=== PATIENT | female | born 1935 | race Caucasian/White ===

== ENCOUNTER 2017-11-10 11:48 | Inpatient (IN) | payer OTHER ==
--- NOTE | 2017-11-10 13:10 | EDPHY ---
H & P Stated Complaint: Syncope Time Seen by Provider: 11/10/17 12:53 HPI/ROS: CHIEF COMPLAINT: Presyncopal episodes HISTORY OF PRESENT ILLNESS: This is an 82-year-old female who is new to [place], having arrived here from [place] on October 28 of this year. She presents today because recurrent presyncopal episodes that have apparently been going on for months. She is accompanied by her daughter who is concerned about these episodes. Patient is having spells where she becomes pale and her lips turned blue and she appears to be fading out; as if she might faint. When she is placed supine the symptoms resolve and she recovers. She has not actually fainted because she is always laid flat when this occurs. She is unable to provide any premonitory symptoms. She these episodes began at the beginning of the year. Of note, she was started on amlodipine, a 2nd antihypertensive, earlier this year. She has not had chest pain. She has no significant cardiac history other than hypertension. She was seen by [facility] a mobile medical unit last night and referred to the emergency department at that time. CBC and chemistries were performed and they were essentially normal--I was able to review them--except for sodium of 131. The examiner noted abdominal distention and recommended an emergency department visit for further evaluation. The patient has a history of urinary retention and years ago was advised to start taking Flomax. She chose not to do so. She denies dysuria, urgency, or frequency. She has not had flank pain. She has a history of COPD but has not been short of breath. She has had no fever or cough. REVIEW OF SYSTEMS: A ten system review of systems was performed and is negative with the exception of the items mentioned in the HPI. Past medical history: 1. COPD 2. Hypertension 3. Urinary retention 4. Hyponatremia Past surgical history: Lumbar surgeries Family history: Social history: She is new to [place], arrived here earlier in the month from [place]. She is staying with her daughter. Former smoker, she quit in February of 2017. General Appearance: Alert. Vital signs reviewed. Eyes: Pupils equal and round, no conjunctival injection, no discharge. Anicteric. ENT, Mouth: Mucous membranes are moist, no oropharyngeal erythema or edema. Neck: No lymphadenopathy, supple. Respiratory: Lungs are clear to auscultation; no wheezes, rales, or rhonchi. Cardiovascular: Regular rate and rhythm; no murmur, rub, or gallop. Gastrointestinal: Abdomen is soft and nontender with , no masses or organomegaly, bowel sounds normal. Skin: Warm and dry, no rashes on exposed skin, normal color. Back: Nontender to palpation over the thoracolumbar spine. No CVAT. Extremities: No lower extremity edema, no calf tenderness or swelling. Neurological: Alert and oriented. Moving all four extremities easily and equally. Psychiatric: Normal affect. - Personal History Current Tetanus/Diphtheria Vaccine: Yes - Medical/Surgical History Hx Asthma: No Hx Chronic Respiratory Disease: Yes Hx Diabetes: No Hx Cardiac Disease: Yes Hx Renal Disease: No Hx Cirrhosis: No Hx Alcoholism: No Other PMH: syncope, osteoporosis, appy, tubal ligation, hypothyoidism, - Social History Smoking Status: Former smoker Constitutional: Initial Vital Signs Temperature (C) 36.7 C 11/10/17 12:18 Heart Rate 80 11/10/17 12:18 Respiratory Rate 18 11/10/17 12:18 Blood Pressure 137/67 H 11/10/17 12:18 O2 Sat (%) 95 11/10/17 12:18 O2 Delivery Mode Room Air Allergies/Adverse Reactions: codeine Allergy (Verified 11/10/17 13:54) Vomiting erythromycin base Allergy (Verified 11/10/17 13:54) Rash Penicillins Allergy (Verified 11/10/17 13:54) Rash Sulfa (Sulfonamide Antibiotics) Allergy (Verified 11/10/17 13:54) Rash Home Medications: Medication Instructions Recorded Albuterol [Proventil Neb] 3 ml IH QID PRN 11/10/17 Aspirin [Aspirin 81mg (*)] 81 mg PO DAILY 11/10/17 Calcium Citrate W/Vit D [Citracal 1 each PO DAILY 11/10/17 + D] Denosumab [Prolia] 60 mg SQ [id number] 11/10/17 Lisinopril [Zestril 5 mg (*)] 5 mg PO DAILY 11/10/17 Umeclidinium Brm/Vilanterol Tr 1 each IH HS 11/10/17 [Anoro Ellipta 62.5-25 Mcg INH] Medical Decision Making ED Course/Re-evaluation: Presyncopal episodes in an 82-year-old female with COPD. EKG is reviewed by in is normal. I have an EKG from 10/28/2017 for comparison and there are no changes. Cardiac workup is being initiated. She has no respiratory symptoms that would suggest PE and her presyncopal episodes have been long-standing, they are not a new problem although her family in [place] is appropriately concerned about them. History of urinary retention. She does have some lower abdominal distension. Will check a postvoid residual with a bladder scan. PVR normal. UA does not show signs of infection. Labs show D-dimer of 0.53. We discussed CTA and a joint decision was made to forego this study at this time. Troponin negative. She is slightly hyponatremic. INitial potassium 5.2, repeat 4.1. She is being admitted to the hospital for further evaluation of her presyncopal episodes--which could be orthostasis (heart rate from 75 to 87 when moving from supine to standing), hypovolemia, blood loss, medication related (amlodipine added to medications within past month or two). - Data Points Laboratory Results: Laboratory Results 11/10/17 13:55 11/11/17 04:16 Medications Given: Discontinued Medications Aspirin (Aspirin) 81 mg PO DAILY [facility] Stop: 05/10/18 08:59 Last Admin: 11/12/17 10:25 Dose: 81 mg Enoxaparin Sodium (Lovenox) 40 mg SC DAILY [facility] Stop: 05/10/18 08:59 Last Admin: 11/12/17 10:25 Dose: Not Given Miscellaneous Medication (Umeclidinium Brm/Vilanterol Tr [Anoro Ellipta 62.5-25 Mcg Inh]) 1 each IH HS [facility] Stop: 05/09/18 21:59 Last Admin: 11/11/17 22:17 Dose: 1 ea Point of Care Test Results: Chemistry 11/10/17 14:32 POC Troponin I 0.01 ng/mL ng/mL (0.00-0.08) Departure - Departure Disposition: [facility] Inpatient Acute Clinical Impression: Pre-syncope Condition: Fair
[2017-11-10 14:26] LABS: PLATELET COUNT 288 10^3/uL (150-400)
[2017-11-10] MEDS ORDERED: ONDANSETRON DISINTEGRATING 4 MG TAB PO PRN (15:06)
[2017-11-10] MEDS ORDERED: ACETAMINOPHEN 325 MG TAB PO PRN (15:06)
[2017-11-10] MEDS ORDERED: ONDANSETRON 4 MG/2 ML VIAL IVP PRN (15:06)
[2017-11-10] MEDS ORDERED: NS 1,000 ML IV SCH (15:15)
--- NOTE | 2017-11-10 15:50 | PDGENHP ---
History and Physical - Chief Complaint Presyncope - History of Present Illness Karen Russell is a 82 yo F with a PMHx of HTN who presents to [facility] for evaluation of presyncope. She reports that she has been having episodes where she will stand up from sitting and experience lightheadedness and the feeling like she is going to pass out. She has been experiencing these symptoms for the past month or so since the new medication Amlodipine was added to her regimen. She has not had any LOC or falls. She denies any chest pain, SOB, vision changes, weakness, edema, n/v, changes in urination. History Information - Allergies/Home Medication List Allergies/Adverse Reactions: codeine Allergy (Verified 11/10/17 13:54) Vomiting erythromycin base Allergy (Verified 11/10/17 13:54) Rash Penicillins Allergy (Verified 11/10/17 13:54) Rash Sulfa (Sulfonamide Antibiotics) Allergy (Verified 11/10/17 13:54) Rash Home Medications: Albuterol [Proventil Neb] 3 ml IH QID PRN 11/10/17 [Last Taken Unknown] Aspirin [Aspirin 81mg (*)] 81 mg PO DAILY 11/10/17 [Last Taken Unknown] Calcium Citrate W/Vit D [Citracal + D (OTC)] 1 each PO DAILY 11/10/17 [Last Taken Unknown] Denosumab [Prolia] 60 mg SQ .[id number] 11/10/17 [Last Taken Unknown] Lisinopril [Zestril 5 mg (*)] 5 mg PO DAILY 11/10/17 [Last Taken 11/10/17] Umeclidinium Brm/Vilanterol Tr [Anoro Ellipta 62.5-25 Mcg INH] 1 each IH HS [Last Taken 11/09/17] amLODIPine BESYLATE [Norvasc 5 mg (*)] 5 mg PO HS 11/10/17 [Last Taken 11/09/17] I have personally reviewed and updated: family history, medical history, social history, surgical history - Past Medical History hypertension, osteoporosis - Surgical History Reports: no pertinent surgical hx - Family History Negative for: sudden - Social History Smoking Status: Former smoker Review of Systems Review of Systems: ROS: 10pt was reviewed & negative except for what was stated in HPI & below Physical Exam Physical Exam: Temp Pulse Resp BP Pulse Ox 36.7 C 75 18 147/76 H 95 11/10/17 12:18 11/10/17 14:05 11/10/17 12:18 11/10/17 14:05 11/10/17 12:18 Constitutional: no apparent distress Eyes: PERRL Ears, Nose, Mouth, Throat: moist mucous membranes Cardiovascular: regular rate and rhythym Respiratory: no respiratory distress, clear to auscultation Gastrointestinal: normoactive bowel sounds, soft, non-tender abdomen Genitourinary: no bladder fullness Skin: warm Musculoskeletal: no muscle tenderness Neurologic: AAOx3 Psychiatric: interacting appropriately Lab Data & Imaging Review 11/10/17 13:55 11/10/17 14:30 WBC 5.85 10^3/uL (3.80-9.50) 11/10/17 13:55 RBC 4.33 10^6/uL (4.18-5.33) 11/10/17 13:55 Hgb 13.0 g/dL (12.6-16.3) 11/10/17 13:55 Hct 38.8 % (38.0-47.0) 11/10/17 13:55 MCV 89.6 fL (81.5-99.8) 11/10/17 13:55 MCH 30.0 pg (27.9-34.1) 11/10/17 13:55 MCHC 33.5 g/dL (32.4-36.7) 11/10/17 13:55 RDW 12.9 % (11.5-15.2) 11/10/17 13:55 Plt Count 288 10^3/uL (150-400) 11/10/17 13:55 MPV 9.2 fL (8.7-11.7) 11/10/17 13:55 Neut % (Auto) 66.5 % (39.3-74.2) 11/10/17 13:55 Lymph % (Auto) 22.6 % (15.0-45.0) 11/10/17 13:55 [place] % (Auto) 8.9 % (4.5-13.0) 11/10/17 13:55 Eos % (Auto) 1.2 % (0.6-7.6) 11/10/17 13:55 Baso % (Auto) 0.5 % (0.3-1.7) 11/10/17 13:55 Nucleat RBC Rel Count 0.0 % (0.0-0.2) 11/10/17 13:55 Absolute Neuts (auto) 3.89 10^3/uL (1.70-6.50) 11/10/17 13:55 Absolute Lymphs (auto) 1.32 10^3/uL (1.00-3.00) 11/10/17 13:55 Absolute Monos (auto) 0.52 10^3/uL (0.30-0.80) 11/10/17 13:55 Absolute Eos (auto) 0.07 10^3/uL (0.03-0.40) 11/10/17 13:55 Absolute Basos (auto) 0.03 10^3/uL (0.02-0.10) 11/10/17 13:55 Absolute Nucleated RBC 0.00 10^3/uL (0-0.01) 11/10/17 13:55 Immature Gran % 0.3 % (0.0-1.1) 11/10/17 13:55 Immature Gran # 0.02 10^3/uL (0.00-0.10) 11/10/17 13:55 Sodium 130 mEq/L (135-145) L 11/10/17 14:30 Potassium 4.1 mEq/L (3.3-5.0) 11/10/17 14:30 Chloride 96 mEq/L (97-110) L 11/10/17 14:30 Carbon Dioxide 26 mEq/l (22-31) 11/10/17 14:30 Anion Gap 8 mEq/L (8-16) 11/10/17 14:30 BUN 16 mg/dL (7-23) 11/10/17 14:30 Creatinine 0.5 mg/dL (0.6-1.0) L 11/10/17 14:30 Estimated GFR > 60 11/10/17 14:30 Glucose 76 mg/dL (70-100) 11/10/17 14:30 Calcium 8.6 mg/dL (8.5-10.4) 11/10/17 14:30 POC Troponin I 0.01 ng/mL (0.00-0.08) 11/10/17 14:32 Urine Color YELLOW 11/10/17 13:11 Urine Appearance CLEAR 11/10/17 13:11 Urine pH 6.0 (5.0-7.5) 11/10/17 13:11 Ur Specific [place] 1.009 (1.002-1.030) 11/10/17 13:11 Urine Protein NEGATIVE (NEGATIVE) 11/10/17 13:11 Urine Ketones NEGATIVE (NEGATIVE) 11/10/17 13:11 Urine Blood NEGATIVE (NEGATIVE) 11/10/17 13:11 Urine Nitrate NEGATIVE (NEGATIVE) 11/10/17 13:11 Urine Bilirubin NEGATIVE (NEGATIVE) 11/10/17 13:11 Urine Urobilinogen NEGATIVE EU (0.2-1.0) 11/10/17 13:11 Ur Leukocyte Esterase NEGATIVE (NEGATIVE) 11/10/17 13:11 Urine Glucose NEGATIVE (NEGATIVE) 11/10/17 13:11 Assessment & Plan Assessment: Orthostatic Hypotension - Has been having presyncopal symptoms - Reports onset after addition of Amlodipine - Orthostatic VS in ED positive - Will hold BP medications including Lisinopril and Amlodipine, restart as tolerated, would likely d/c amlodipine in the future - Will give gentle IVF overnight @75 ml/hr - Can repeat Orthostatics in the AM - Cardiac monitoring overnight Hyponatremia - Na 130 on admission - No baseline known - Likely hypovolemic hyponatremia in setting of Orthostasis - IVF as above - Repeat Na in the AM, if downtrending order urine studies Osteoporosis - Continue home Prolia COPD - Continue home Albuterol - CXR on admission shows emphysematous changes FEN: IVF overnight PPx: Lovenox Code: FULL Dispo: Admit to Observation
[2017-11-10] MEDS ORDERED: ALBUTEROL 3 ML DEYVIAL IH PRN (15:52)
--- NOTE | 2017-11-10 20:59 | CPEKG ---
Test Reason : OPEN Blood Pressure : / mmHG Vent. Rate : 076 BPM Atrial Rate : 076 BPM P-R Int : 131 ms QRS Dur : 074 ms QT Int : 358 ms P-R-T Axes : 077 050 039 degrees QTc Int : 403 ms Sinus rhythm Confirmed by Minerva Leone ([id number]) on 11/10/2017 8:59:31 PM Referred By: Confirmed By:Minerva Leone
[2017-11-10] MEDS: Umeclidinium Brm/Vilanterol Tr [Anoro Ellipta 62.5-25 Mcg Inh] IH SCH (22:12)
--- NOTE | 2017-11-11 08:39 | HOSPPROG ---
Hospitalist Progress Note Assessment/Plan: Karen Russell is a 82 yo F with a PMHx of HTN who presents to [facility] for evaluation of presyncope. She reports that she has been having episodes where she will stand up from sitting and experience lightheadedness and the feeling like she is going to pass out. She has been experiencing these symptoms for the past month or so since the new medication Amlodipine was added to her regimen. I spoke w Britt and she has been feeling short of breath, was recently evaluated in the ER in [place] for this. Today is my first encounter w the patient, chart reviewed. *shortness of breath with episodes of anxiety -she is tachycardic at times during my interview -said she has been seen several times for this, but according to her and her daughter; she has not had a CTA -will order this now, d-dimer is elevated -also will get an echo to further evaluate -could be r/t her copd *Orthostatic Hypotension -orthostatics are stable today *Hyponatremia,hypovolemic -improved w hydration *Osteoporosis - Continue Prolia *COPD - Continue home Albuterol - CXR on admission shows emphysematous changes -hx of smoking; says she never inhaled but 'puffed' on cigarettes PPx: Lovenox *plan: get a CTA and echo Subjective: Britt said she is short of breath and worried about being lightheaded. Eating and drinking well. Objective: Vital Signs Temp Pulse Resp BP Pulse Ox 36.8 C 83 16 130/64 H 91 L 11/11/17 03:05 11/11/17 03:05 11/11/17 03:05 11/11/17 03:05 11/11/17 03:05 Laboratory Results 11/11/17 04:16 11/10/17 11/11/17 11/12/17 05:59 05:59 05:59 Intake Total 400 Balance 400 - Physical Exam Constitutional: no apparent distress, appears nourished, not in pain Eyes: PERRL Ears, Nose, Mouth, Throat: hearing normal Cardiovascular: regular rate and rhythym, tachycardia Respiratory: no respiratory distress, reduced air movement Skin: warm Musculoskeletal: full muscle strength Neurologic: AAOx3 Psychiatric: interacting appropriately ICD10 Worksheet Patient Problems: Problems Problem Status Onset Pre-syncope Acute
[2017-11-11] MEDS: ENOXAPARIN 40 MG/0.4 ML SYR SC SCH (10:13)
[2017-11-11] MEDS: ASPIRIN 81 MG CHEWABLE TAB PO SCH (10:13)
[2017-11-11] MEDS ORDERED: IOPAMIDOL (ISOVUE 370) 100 ML BTL IV ONE (11:57)
--- NOTE | 2017-11-11 13:58 | ASMTCASEMG ---
Living Arrangements What is your living Answers: With Child(gregory) arrangement? Who do you live with? Type Of Residence What kind of residence do Answers: House you live in? Discharge Plan Comments Coordination Status Comments Notes: Pt is a 82 y/o female admitted for presyncope. Therapies have been ordered and awaiting recommendations. Needs are TBD at this time. CM to follow. Plan: TBD Date Signed: 11/11/2017 01:53 PM Electronically Signed By:SAMMY Coyle
--- NOTE | 2017-11-11 16:06 | ECHO ---
[email or web address] [address] [address] Main: [phone] Fax: Transthoracic Echocardiogram Name: KAREEN VALENTIN MR#: [id number] Study Date: 11/11/2017 Study Time: 02:37 PM Date of : 1935 Age: 82 year(s) Height: 142.2 cm (56 in.) Weight: 44.45 kg (98 lb.) BSA: 1.31 m2 Gender: Female Examination: Echo Indication: Tachycardia, Near Syncope Image Quality: Contrast: Requested by: Latricia Pineda BP: 137 mmHg/74 mmHg Heart Rate: Rhythm: Indication: Tachycardia, Near Syncope Procedure Staff Landscape Photographer: Gerson Marie RDCS Reading Physician: Roxy Toure MD Requesting Provider: Conclusions: Normal size left ventricle. No LV hypertrophy. Normal global systolic LV function. EF is 75 %. No regional wall motion abnormality. Grade 1 diastolic dysfunction (abnormal relaxation). Normal size right ventricle. Normal RV function. Mild aortic cusp calcification is noted. No aortic valve stenosis is present. Mild tricuspid regurgitation is present. The pulmonary artery pressure is normal. No pericardial effusion. There is no previous echocardiogram for comparison. Measurements: Chambers Valvular Assessment AV/MV Valvular Assessment TV/PV Normal Normal Normal Name Value Range Name Value Range Name Value Range Ao [place] (MM): 2.7 cm (2.2 cm-3.7 AV Vmax: 1.26 m/s (1 m/s-1.7 TR Vmax: 2.88 mm/s ( - ) cm) m/s) TR PGmax: 33 mmHg ( - ) IVSd (2D): 0.8 cm (0.6 cm-1.1 AV maxP mmHg ( - ) syst. PAP: 38 mmHg ( - ) cm) LVOT Vmax: 1.19 m/s (0.7 m/s-1.1 PV Vmax: 0.83 m/s (0.6 m/s-0.9 LVDd (2D): 3.9 cm (3.9 cm-5.3 m/s) m/s) cm) MV E Vmax: 0.67 m/s ( - ) PV PGmax: 3 mmHg ( - ) LVDs (2D): 2.2 cm (2.1 cm-4 MV A Vmax: 0.88 m/s ( - ) cm) MV E/A: 0.76 ( - ) LVPWd (2D): 0.9 cm ( - ) LVEF (2D): 75 (>=54 %) Patient: KAREEN VALENTIN Study Date: 11/11/2017 Page 1 of 2 02:37 PM Continued Measurements: Chambers Valvular Assessment AV/MV Valvular Assessment TV/PV Name Value Name Value Name Value LADs Lon.4 cm MV E' Septal: 0.05 m/s CVP (est.): 5 mmHg LA Area: 11.4 cm2 MV E/E' Septal: 12.50 LA Volume: 32 ml MV E/E' Lateral: 11.90 LA Volume Index: 24.4 ml/m2 Findings: Left Ventricle: Normal size left ventricle. No LV hypertrophy. Normal global systolic LV function. EF is 75 %. No regional wall motion abnormality. Grade 1 diastolic dysfunction (abnormal relaxation). Right Ventricle: Normal size right ventricle. Normal RV function. Left Atrium: The left atrium is normal in size. Right Atrium: The right atrium is normal in size. Mitral Valve: The mitral valve is normal in appearance and function. Trivial mitral valve regurgitation. Aortic Valve: Mild aortic cusp calcification is noted. No aortic valve stenosis is present. There is no aortic valve regurgitation. Tricuspid Valve: The tricuspid valve appears normal. Mild tricuspid regurgitation is present. The pulmonary artery pressure is normal. Pulmonic Valve: The pulmonic valve is normal in appearance and function. Aorta: The aorta is normal. Pericardium: No pericardial effusion. (No Signature Object) Patient: KAREEN VALENTIN Study Date: 11/11/2017 Page 2 of 2 02:37 PM [id number]
[2017-11-11] MEDS: Umeclidinium Brm/Vilanterol Tr [Anoro Ellipta 62.5-25 Mcg Inh] IH SCH (22:17)
[2017-11-12 07:32] VITALS: BP 150/94
--- NOTE | 2017-11-12 09:41 | PDMN ---
Medical Necessity Medical necessity: Change to IP, as of 11/11/17, per [employer]CE; los >2 mn for ongoing management of presyncope w/tachycardia, dyspnea & lightheadedness; requiring further workup/monitoring & therapies; comorbid advanced age, COPD, HTN
[2017-11-12] MEDS ORDERED: TIOTROPIUM INHALER 18 MCG/DOSE 5 DOSE/MDI IH SCH (10:15)
--- NOTE | 2017-11-12 10:18 | HOSPPROG ---
Hospitalist Progress Note Assessment/Plan: Karen Russell is a 82 yo F with a PMHx of HTN who presents to [facility] for evaluation of presyncope. She reports that she has been having episodes where she will stand up from sitting and experience lightheadedness and the feeling like she is going to pass out. She has been experiencing these symptoms for the past month or so since the new medication Amlodipine was added to her regimen. I spoke w July and she has been feeling short of breath, was recently evaluated in the ER in [place] for this. *severe emphysema (new diagnosis on this admission) -this is why she has been short of breath for past year -will start her on Spiriva and have her f/u with pulmonology and get OP PFT's *Right apical lung nodules measuring 4.5 mm -reviewed w the patient and her daughter that this must be followed up *Orthostatic Hypotension -orthostatics are stable today -reviewed echo, nothing acute noted, EF of 75% *Hyponatremia,hypovolemic -Na level is 131, will have her f/u with her PCP -recommending she increase solute intake *Osteoporosis - Continue Prolia *COPD - Continue home Albuterol - CXR on admission shows emphysematous changes - hx of smoking; says she never inhaled but 'puffed' on cigarettes - she also was around second hand smoke and she is here from [place], she said she has had multiple exposures to oil, etc PPx: Lovenox *plan: dc home w close f/u with a pulmologist Subjective: Ms Russell is feeling fine today, no complaints. Objective: Vital Signs Temp Pulse Resp BP Pulse Ox 36.8 C 92 16 138/84 H 93 11/12/17 07:25 11/12/17 07:25 11/12/17 07:25 11/12/17 07:25 11/12/17 04:00 Laboratory Results 11/12/17 04:17 11/11/17 11/12/17 11/13/17 05:59 05:59 05:59 Intake Total 300 Balance 300 - Physical Exam Constitutional: no apparent distress, appears nourished, not in pain Eyes: anicteric sclera Ears, Nose, Mouth, Throat: hearing normal Cardiovascular: regular rate and rhythym Respiratory: no respiratory distress, reduced air movement (bibasilar) Gastrointestinal: normoactive bowel sounds Skin: warm Musculoskeletal: full muscle strength Neurologic: AAOx3 Psychiatric: interacting appropriately ICD10 Worksheet Patient Problems: Problems Problem Status Onset Pre-syncope Acute
[2017-11-12] MEDS: ASPIRIN 81 MG CHEWABLE TAB PO SCH (10:25)
[2017-11-12] MEDS: ENOXAPARIN 40 MG/0.4 ML SYR SC SCH (10:25)
--- NOTE | 2017-11-12 11:27 | ASMTLACE ---
[facility] Length of stay for Answers: 2 days current admission Comorbidities - select Answers: Chronic pulmonary disease all that apply Other Notes: HTN; Hyponatremia; Urin rickie retention # of Emergency department Answers: 1-2 visits in the last 6 months Score: 6 Date Signed: 11/12/2017 11:27 AM Electronically Signed By:Ramandeep De La Cruz RN
--- NOTE | 2017-11-12 11:29 | ASMTCMCOM ---
CM Note CM Note Notes: Spoke w/RN and pt, CM offered home care per PT recommendation. 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 CM available for any changes. DC Plan: Independent Date Signed: 11/12/2017 11:29 AM Electronically Signed By:Ramandeep De La Cruz RN
--- NOTE | 2017-11-12 13:12 | GDS ---
DISCHARGE DIAGNOSES: 1. Severe emphysema with underlying chronic obstructive pulmonary disease. 2. Right apical lung nodules with the largest one measuring 4.5 mm. 3. Orthostatic hypotension. 4. Hypovolemic hyponatremia. 5. Osteoporosis. HISTORY: Briefly, Ms. Russell is an 82-year-old female with a past medical history of hypertension, who presented to [facility] for evaluation of presyncope. She has been having episodes where she will stand up from sitting and experience lightheadedness and feeling that she is going to pass out. She has been having these symptoms for approximately a month. In addition, she also has been having severe shortness of breath and has been evaluated in the emergency room in [place], [place] for evaluation of this. During her stay, she had a CT scan of her chest which showed that she has severe emphysema with multiple right apical lung nodules with the largest one measuring 4.5 mm. In addition, she had an echocardiogram performed that showed nothing acute. She has an ejection fraction of 75%. Today she will be discharged home. The recommendation is for her to be monitored closely by the all around presser and get pulmonary function tests. In addition, recommending that she get her sodium level rechecked. HOSPITAL COURSE: 1. Severe emphysema. The patient says she has been short of breath for approximately a year. I think she is unaware that she has significant lung disease and we will have her follow up in the outpatient setting. She is noted to have underlying chronic obstructive pulmonary disease. She has had a history of being around second hand smoke. She also has a long history of smoking. She said she never inhaled, but puffed on cigarettes frequently when she was younger. 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. Close followup with Pulmonology. 2. Right apical lung nodules with the largest measuring 4.5 mm. I reviewed this finding with the patient and her daughter. She will need to get a CT of her chest in 12 months. I also spoke with Pulmonology and she will follow up with them. 3. Orthostatic hypotension. Her orthostatics have been stable. Echo showed nothing acute. 4. Hyponatremia. I suspect this is due to hypovolemia. She improved after getting IV hydration. I recommend that she increase her solute intake. 5. Osteoporosis, on Prolia. DISCHARGE CONDITION: Stable. Blood pressure is 132/84, heart rate of 90, respiratory rate of 16, O2 sats on room air 93%, temperature is 36.8 Celsius. MEDICATIONS AT DISCHARGE: Please see the EMR. DISCHARGE INSTRUCTIONS: 1. Stop the amlodipine. I suspect this is making her more lightheaded than her baseline. 2. Get her sodium checked in a week. 3. Repeat CT of her chest in 12 months. 4. Further followup with a all around presser. I have given her the names of several local pulmonologists to follow up with. Greater than 30 minutes discharging and coordinating the patient's care. /[id number]/MODL MTDD
--- NOTE | 2017-11-12 15:20 | ASMTCMCOM ---
TWAN Note TWAN Note Notes: Received call from Ramandeep at [facility], states that pt is current with them. CM told her that pt declined homecare, Ramandeep will talk to daughter as that is their point of contact. She requests an updated medlist for care, no orders needed. Date Signed: 11/12/2017 03:19 PM Electronically Signed By:Ramandeep De La Cruz RN
--- NOTE | 2017-11-13 17:13 | ASDISCHSUM ---
Discharge Information Plan Status:Home with Home Health Medically Cleared to Leave: Discharge Date:11/12/2017 11:41 AM D/C Disposition:Home Health Service ADT D/C Disposition:Home, Routine, Self-Care Projected Discharge Date:11/12/2017 11:00 AM Transportation at D/C:Family Discharge Delay Reason: Follow-Up Date:11/12/2017 11:00 AM Discharge Slot: Final Diagnosis: Placement Information Referral Type:*Home Health Care Services Referral ID:[id number] Provider Name:[facility] ([facility]) Address 1:[address] [address] Address 2: City:[place] Selection Factors: State:[place] Patient Contact Information Contact Name:JOSE J Relationship:Daughter Address:[address] [facility] City:[place] Alternate Phone: State/Zip Code:[place] [address] Email: Financial Information Financial Class:Medicare Primary Plan Desc:MEDICARE INPATIENT Primary Plan Number:[id number] Secondary Plan Desc:ROCÍO Secondary Plan Number:[id number] Assessment Information LACE LACE Length of stay for Answers: 2 days current admission Comorbidities - select Answers: Chronic pulmonary disease all that apply Other Notes: HTN; Hyponatremia; Krisin rickie jackson # of Emergency department Answers: 1-2 visits in the last 6 months Score: 6 Date Signed: 11/12/2017 11:27 AM Electronically Signed By:Ramandeep De La Curz RN [facility] Initial CM Assessment Living Arrangements What is your living Answers: With Child(gregory) arrangement? Who do you live with? Type Of Residence What kind of residence do Answers: House you live in? Discharge Plan Comments Coordination Status Comments Notes: Pt is a 82 y/o female admitted for presyncope. Therapies have been ordered and awaiting recommendations. Needs are TBD at this time. CM to follow. Plan: TBD Date Signed: 11/11/2017 01:53 PM Electronically Signed By:SAMMY Cyole [facility] TWAN Progress Note CM Note CM Note Notes: Spoke w/RN and pt, CM offered home care per PT recommendation. 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 CM available for any changes. DC Plan: Independent Date Signed: 11/12/2017 11:29 AM Electronically Signed By:Ramandeep De La Cruz RN [facility] TWAN Progress Note CM Note CM Note Notes: Received call from Ramandeep at [facility], states that pt is current with them. CM told her that pt declined homecare, Ramandeep will talk to daughter as that is their point of contact. She requests an updated medlist for care, no orders needed. Date Signed: 11/12/2017 03:19 PM Electronically Signed By:Ramandeep De La Cruz RN Intervention Information Intervention Type:ALEJANDRO-Not Delivered Date of Service:11/11/2017 02:51 PM Patient Type:Observation Staff Member:Odalys James Hours: Discipline: Severity: Comment:Patient asked that I return when her tae baca is here, which will not be until tomorrow. I left the patient a copy of the ALEJANDRO form. Intervention Type:*Occurence 72 Date of Service:11/10/2017 11:39 AM Patient Type:Inpatient Staff Member:JOSIAH Valles, Verna Hours: Discipline: Severity: Comment:
== END 2017-11-12 11:41 | disposition home or self-care (01) | DRG 191 ==
LOC: F3E 18:30 → INTOOBSV 11-11 15:54 → OBSVTOIN 11-11 15:54
PROVIDERS: ADMIT Internal Medicine; ATTEND Internal Medicine
DX: J43.9 Emphysema, unspecified (principal); E87.1 Hypo-osmolality and hyponatremia; R91.8 Other nonspecific abnormal finding of lung field; I95.1 Orthostatic hypotension; M81.0 Age-related osteoporosis without current pathological fracture; E86.1 Hypovolemia; I10 Essential (primary) hypertension; R33.9 Retention of urine, unspecified
CPT/HCPCS: 84484-PO; 97116-GP; 97162-GP; 97166-GO; G0378; G8978-GP-CK; G8979-GP-CI; G8987-GO-CI; G8988-GO-CI; J1650; Q9967

== ENCOUNTER 2017-12-26 17:37 | Emergency (ER) | payer OTHER ==
--- NOTE | 2017-12-26 18:05 | EDPHY ---
H & P Stated Complaint: Headache, mechanical fall Time Seen by Provider: 12/26/17 18:05 HPI/ROS: CHIEF COMPLAINT: Headache, mechanical fall HISTORY OF PRESENT ILLNESS: The patient presents to the ED with complaints headache following a mechanical fall from a chair earlier today. The patient slipped backwards and struck her head. She did not experience loss of consciousness. She complains of minimal posterior neck pain. She denies any chest pain, abdominal pain, low back pain, acute numbness or weakness. The patient had no antecedent chest pain or palpitations. The patient is not anticoagulated. The patient denies any recent fever, cough or congestion. She has no additional acute medical complaints. REVIEW OF SYSTEMS: A comprehensive 10 point review of systems is otherwise negative aside from elements mentioned in the history of present illness. Source: Patient - Personal History Current Tetanus/Diphtheria Vaccine: Unsure Current Tetanus Diphtheria and Acellular Pertussis (TDAP): Unsure - Medical/Surgical History Hx Asthma: No Hx Chronic Respiratory Disease: Yes Hx Diabetes: No Hx Cardiac Disease: Yes Hx Renal Disease: No Hx Cirrhosis: No Hx Alcoholism: No Hx HIV/AIDS: No Hx Splenectomy or Spleen Trauma: No Other PMH: syncope, osteoporosis, appy, tubal ligation, hypothyoidism, - Social History Smoking Status: Former smoker - Physical Exam Exam: General Appearance: Alert, no distress Head: Soft tissue swelling noted in the right occipital parietal area. Eyes: Pupils equal, round, reactive ENT, Mouth: No hemotympanum, no oral trauma Neck: Minimal posterior cervical spine tenderness, poorly localized Respiratory: No chest wall tender, subcutaneous air, lungs clear bilaterally Cardiovascular: Regular rate and rhythm Abdomen: Abdomen is soft and nontender, pelvis stable Skin: No lacerations, No abrasion Back: No midline T/L/S pain Extremities: Nontender, full range of motion Neurological: A&Ox3, normal motor function, normal sensory exam Constitutional: Initial Vital Signs Temperature (C) 36.6 C 12/26/17 17:47 Heart Rate 84 12/26/17 17:47 Respiratory Rate 16 12/26/17 17:47 Blood Pressure 141/77 H 12/26/17 17:47 O2 Sat (%) 95 12/26/17 17:47 O2 Delivery Mode Room Air Allergies/Adverse Reactions: codeine Allergy (Verified 11/09/18 17:45) Vomiting erythromycin base Allergy (Verified 12/26/17 17:45) Rash Penicillins Allergy (Verified 12/26/17 17:45) Rash Sulfa (Sulfonamide Antibiotics) Allergy (Verified 12/26/17 17:45) Rash Home Medications: Medication Instructions Recorded Albuterol [Proventil Neb] 3 ml IH QID PRN 11/10/17 Aspirin [Aspirin 81mg (*)] 81 mg PO DAILY 11/10/17 Calcium Citrate W/Vit D [Citracal 1 each PO DAILY 11/10/17 + D] Denosumab [Prolia] 60 mg SQ [id number] 11/10/17 Lisinopril [Zestril 5 mg (*)] 5 mg PO DAILY 11/10/17 Umeclidinium Brm/Vilanterol Tr 1 each IH HS 11/10/17 [Anoro Ellipta 62.5-25 Mcg INH] Estradiol 12/26/17 traZODone 12/26/17 Medical Decision Making - Diagnostics Imaging Results: CT head without contrast: Images reviewed by myself and discussed with radiologist Dr. Muñoz. Negative for acute intracranial hemorrhage or skull fracture. CT cervical spine: Images reviewed by myself and discussed with radiologist Dr. Muñoz. DJD noted, no acute fracture present. ED Course/Re-evaluation: Given the patient's age and complaints of headache coupled with the mechanism of her fall. A CT scan of the head and cervical spine has been ordered. The patient is noted to be neurologically intact upon arrival. She is not anticoagulated. The remainder of her examination demonstrates no evidence of an obvious traumatic injury. CT scan of the head demonstrates no evidence of an intracranial hemorrhage or skull fracture. CT scan of the cervical spine demonstrates only DJD. I re-evaluated the patient again at 7:30 p.m.. She continues to have a very mild headache and is exhibiting some slight concussion symptoms. She is comfortable being discharged home. She will be given a concussion pamphlet. She is given customary aftercare instructions and return precautions. Differential Diagnosis: Differential diagnosis considered includes intracranial hemorrhage, skull fracture, cervical spine fracture, concussion Departure - Departure Disposition: Home, Routine, Self-Care Clinical Impression: Concussion Qualifiers: Encounter type: initial encounter Loss of consciousness presence/duration: without LOC Qualified Code(s): S06.0X0A - Concussion without loss of consciousness, initial encounter Head injury Qualifiers: Encounter type: initial encounter Qualified Code(s): S09.90XA - Unspecified injury of head, initial encounter Condition: Good Instructions: Concussion (ED) Additional Instructions: 1. Tylenol and ibuprofen as needed for pain. 2. Please return to the ED for any worsening headache, vomiting or abnormal neurologic complaints. 3. Concussion aftercare as directed.
[2017-12-26 19:34] VITALS: BP 151/59
== END 2017-12-26 19:36 | disposition home or self-care (01) ==
DX: S06.0X0A Concussion without loss of consciousness, initial encounter (principal); W19.XXXA Unspecified fall, initial encounter; W22.8XXA Striking against or struck by other objects, initial encounter; Y92.9 Unspecified place or not applicable; Y93.9 Activity, unspecified; Y99.9 Unspecified external cause status

== ENCOUNTER 2018-03-07 11:49 | Emergency (ER) | payer OTHER ==
--- NOTE | 2018-03-07 12:23 | EDPHY ---
H & P Stated Complaint: dizzy/vertigo starting last night Time Seen by Provider: 03/07/18 12:10 HPI/ROS: CHIEF COMPLAINT: Chronic vertigo HISTORY OF PRESENT ILLNESS: The patient is a 83-year-old female who reports a history of chronic intermittent vertigo. Particularly when she looks to the left. She has become afraid of looking to the left over the last several years. According to the the on-call PA report her vertigo has worsened over the last 4 days and she had a temperature of 100 degrees last night. The patient denies both of these statements. She states that symptoms have been unchanged and that she has not had a fever. She does state that she had a flu about 2 weeks ago but it has since resolved. She denies chest pain or shortness of breath or palpitations. She denies syncope or presyncope. She states that typically her vertigo worsens when she looks to the left or changes position abruptly. Family is not yet here. No headache. Severity: Moderate and intermittent Modifying factors: None REVIEW OF SYSTEMS: Constitutional: denies: chills, fever, recent illness, recent injury EENTM: denies: blurred vision, double vision, nose congestion Respiratory: denies: cough, shortness of breath Cardiac: denies: chest pain, irregular heart rate, lightheadedness, palpitations Gastrointestinal/Abdominal: denies: abdominal pain, diarrhea, nausea, vomiting, blood streaked stools Genitourinary: denies: dysuria, frequency, hematuria, pain Musculoskeletal: denies: joint pain, muscle pain Skin: denies: lesions, rash, jaundice, bruising Neurological: See HPI denies: headache, numbness, paresthesia, tingling, dizziness, weakness Hematologic/Lymphatic: denies: blood clots, easy bleeding, easy bruising Immunologic/allergic: denies: HIV/AIDS, transplant 10 systems reviewed and negative except as noted EXAM: GENERAL: Well-appearing, well-nourished and in no acute distress. HEAD: Atraumatic, normocephalic. EYES: Slight horizontal nystagmus with fast component to the left that fatigues. Pupils equal round and reactive to light, extraocular movements intact, sclera anicteric, conjunctiva are normal. ENT: TMs normal, nares patent, oropharynx clear without exudates. Moist mucous membranes. NECK: Normal range of motion, supple without lymphadenopathy or JVD. LUNGS: Breath sounds clear to auscultation bilaterally and equal. No wheezes rales or rhonchi. HEART: Regular rate and rhythm without murmurs, rubs or gallops. ABDOMEN: Soft, nontender, normoactive bowel sounds. No guarding, no rebound. No masses appreciated. BACK: No CVA tenderness, no spinal tenderness, step-offs or deformities EXTREMITIES: Normal range of motion, no pitting or edema. No clubbing or cyanosis. NEUROLOGICAL: Cranial nerves II through XII grossly intact. Normal speech, normal gait with some assistance patient states is baseline. 5/5 strength, normal movement in all extremities, normal sensation, normal reflexes. Normal [id number]. PSYCH: Normal mood, normal affect. SKIN: Warm, dry, normal turgor, no visible rashes or lesions. Source: Patient, EMS, half-way records Exam Limitations: No limitations - Personal History Current Tetanus/Diphtheria Vaccine: Yes Current Tetanus Diphtheria and Acellular Pertussis (TDAP): Yes Tetanus Vaccine Date: < 10 years - Medical/Surgical History Hx Asthma: No Hx Chronic Respiratory Disease: Yes Hx Diabetes: No Hx Cardiac Disease: Yes Hx Renal Disease: No Hx Cirrhosis: No Hx Alcoholism: No Hx HIV/AIDS: No Hx Splenectomy or Spleen Trauma: No Other PMH: syncope, osteoporosis, appy, tubal ligation, hypothyoidism, HTN - Social History Smoking Status: Former smoker Alcohol Use: None Constitutional: Initial Vital Signs Temperature (C) 36.8 C 03/07/18 12:00 Heart Rate 90 03/07/18 12:00 Respiratory Rate 18 03/07/18 12:00 Blood Pressure 138/71 H 03/07/18 12:00 O2 Sat (%) 92 03/07/18 12:00 O2 Delivery Mode Room Air Allergies/Adverse Reactions: codeine Allergy (Verified 03/07/18 11:59) Vomiting erythromycin base Allergy (Verified 03/07/18 11:59) Rash Penicillins Allergy (Verified 03/07/18 11:59) Rash Sulfa (Sulfonamide Antibiotics) Allergy (Verified 03/07/18 11:59) Rash Home Medications: Medication Instructions Recorded Albuterol [Proventil Neb] 3 ml IH QID PRN 11/10/17 Aspirin [Aspirin 81mg (*)] 81 mg PO DAILY 11/10/17 Calcium Citrate W/Vit D [Citracal 1 each PO DAILY 11/10/17 + D] Denosumab [Prolia] 60 mg SQ [id number] 11/10/17 Lisinopril [Zestril 5 mg (*)] 5 mg PO DAILY 11/10/17 Umeclidinium Brm/Vilanterol Tr 1 each IH HS 11/10/17 [Anoro Ellipta 62.5-25 Mcg INH] Estradiol 12/26/17 traZODone 12/26/17 Medical Decision Making - Diagnostics EKG Interpretation: An EKG obtained and was read and documented in trace view. Please see trace view for full reading and report. Sinus rhythm, no acute ischemic changes her arrhythmias Imaging Results: Imaging Impressions Brain MRI 03/07/18 13:15 Impression: Nothing acute identified. Specifically no evidence of an acute or subacute cerebellar infarction. Results discussed with Dr. Quiroz at 2:37 PM. Chest X-Ray 03/07/18 13:15 Impression: 1. COPD/emphysema without evidence for pneumonia. 2. Mild cardiomegaly without decompensation. 3. Severe osteoporosis. This patient would benefit from DEXA scanning and bone building pharmacologic intervention. Imaging: Discussed imaging studies w/ bathroom tiling professional Radiologist ED Course/Re-evaluation: The patient states that her symptoms are chronic and unchanged. She does not feel that she needs any new testing or workup. When her family arrives we will discuss further. 1:15 p.m. the patient's daughter is now arrived. She states that the patient has had chronic vertigo but that it seemed worse last night and she could not sit up without falling over and cannot stand up without falling over. The patient states that her symptoms have resolved this morning. She thinks that she was just tired from a long day of physical therapy. They called a physician assistant district attorney who came to the house and was worried about stroke. Patient however states that she is now back to baseline. Daughter was also worried that maybe she had a recurrence of pneumonia. She was treated 3 weeks ago for pneumonia with doxycycline. Her symptoms improved but last night she had a temperature of 100.2 degrees. No cough or shortness of breath. She is 88 % on room air here. She states that she does not feel short of breath and does not appear to be in distress. Her daughter states that her baseline oxygen is around 92%. She has been diagnosed with mild COPD. 2:40 p.m. the patient is feeling much better. We discussed the MRI and x-ray results. She is reassured. She is states that she feels much better after the albuterol but is still between 88-92% on room air. I suspect that this may be her baseline because she feels asymptomatic and states that she feels great. I did offer steroids but she declined stating that they make her crazy. We discussed using her albuterol as needed at home. She is able to ambulate easy here and does not get off balance. She and her daughter eager to go home. We discussed indications for returning if she develops shortness of breath or fever productive cough or other neurologic symptoms. She will continue to use her albuterol at home as needed. Differential Diagnosis: Partial list of the Differential diagnosis considered include but were not limited to; fatigue, COPD exacerbation, benign positional vertigo, many years and although unlikely based on the history and physical exam, I also considered pneumonia, CVA, acute coronary disease, arrhythmia. - Data Points Laboratory Results: Laboratory Results 03/07/18 12:09 03/07/18 12:09 03/07/18 03/07/18 12:09 12:09 WBC 5.75 10^3/uL 10^3/uL (3.80-9.50) RBC 4.15 10^6/uL L 10^6/uL (4.18-5.33) Hgb 11.6 g/dL L g/dL (12.6-16.3) Hct 36.6 % L % (38.0-47.0) MCV 88.2 fL fL (81.5-99.8) MCH 28.0 pg pg (27.9-34.1) MCHC 31.7 g/dL L g/dL (32.4-36.7) RDW 13.6 % % (11.5-15.2) Plt Count 280 10^3/uL 10^3/uL (150-400) MPV 9.6 fL fL (8.7-11.7) Neut % (Auto) 72.7 % % (39.3-74.2) Lymph % (Auto) 11.8 % L % (15.0-45.0) Vermilion % (Auto) 10.3 % % (4.5-13.0) Eos % (Auto) 4.3 % % (0.6-7.6) Baso % (Auto) 0.7 % % (0.3-1.7) Nucleat RBC Rel Count 0.0 % % (0.0-0.2) Absolute Neuts (auto) 4.18 10^3/uL 10^3/uL (1.70-6.50) Absolute Lymphs (auto) 0.68 10^3/uL L 10^3/uL (1.00-3.00) Absolute Monos (auto) 0.59 10^3/uL 10^3/uL (0.30-0.80) Absolute Eos (auto) 0.25 10^3/uL 10^3/uL (0.03-0.40) Absolute Basos (auto) 0.04 10^3/uL 10^3/uL (0.02-0.10) Absolute Nucleated RBC 0.00 10^3/uL 10^3/uL (0-0.01) Immature Gran % 0.2 % % (0.0-1.1) Immature Gran # 0.01 10^3/uL 10^3/uL (0.00-0.10) Sodium 135 mEq/L mEq/L (135-145) Potassium 4.3 mEq/L mEq/L (3.5-5.2) Chloride 105 mEq/L mEq/L (97-110) Carbon Dioxide 25 mEq/l mEq/l (22-31) Anion Gap 5 mEq/L L mEq/L (6-14) BUN 15 mg/dL mg/dL (7-23) Creatinine 1.0 mg/dL mg/dL (0.6-1.0) Estimated GFR 53 Glucose 97 mg/dL mg/dL (70-100) Calcium 8.8 mg/dL mg/dL (8.5-10.4) Medications Given: Discontinued Medications Albuterol/Ipratropium (Duoneb) 3 ml IH EDNOW ONE Stop: 03/07/18 13:16 Last Admin: 03/07/18 13:28 Dose: 3 ml Departure - Departure Disposition: Home, Routine, Self-Care Clinical Impression: Vertigo, COPD exacerbation Condition: Fair Instructions: Vertigo (ED), COPD (Chronic Obstructive Pulmonary Disease) (ED) Referrals: Patient,NotPresent [Unknown] - As per Instructions Kristel Laguerre MD [Medical Doctor] - As per Instructions
[2018-03-07] MEDS ORDERED: IPRATROPIUM/ALBUTEROL 3 ML DEYVIAL IH ONE (13:15)
[2018-03-07 13:30] LABS: PLATELET COUNT 280 10^3/uL (150-400)
--- NOTE | 2018-03-07 14:34 | CPEKG ---
Test Reason : OPEN Blood Pressure : / mmHG Vent. Rate : 081 BPM Atrial Rate : 082 BPM P-R Int : 124 ms QRS Dur : 056 ms QT Int : 365 ms P-R-T Axes : 072 046 025 degrees QTc Int : 424 ms Sinus rhythm Probable left atrial enlargement Confirmed by Jimi Quiroz ([id number]) on 03/07/2018 2:33:11 PM Referred By: Confirmed By:Jimi Quiroz
[2018-03-07 14:46] VITALS: BP 128/71
== END 2018-03-07 14:53 | disposition home or self-care (01) ==
LOC: EDUNIT# → EEVIPCON 11:49
DX: R42 Dizziness and giddiness (principal); J44.1 Chronic obstructive pulmonary disease with (acute) exacerbation; I10 Essential (primary) hypertension; E03.9 Hypothyroidism, unspecified

== ENCOUNTER → 2018-04-28 | Outpatient (CLI) | payer OTHER | LOC: BMCIMAGING 12:59 | PROVIDERS: ATTEND Physician Assistant Medical | DX: I65.23 Occlusion and stenosis of bilateral carotid arteries (principal) ==

== ENCOUNTER → 2018-05-21 | Outpatient (CLI) | payer OTHER ==
[~2018-05-21] MED LIST: IOPAMIDOL (ISOVUE 370) 100 ML BTL IV ONE
== END ==
LOC: FIMAGING 12:06
PROVIDERS: ATTEND Physician Assistant Medical
DX: I65.21 Occlusion and stenosis of right carotid artery (principal); I70.8 Atherosclerosis of other arteries
CPT/HCPCS: 70498; Q9967; 82565-PO

== ENCOUNTER → 2018-06-03 | Outpatient (CLI) | payer OTHER | LOC: FIMAGING 12:13 ==

== ENCOUNTER 2018-06-11 11:13 | Day surgery (SDC) | payer OTHER ==
[2018-06-11] MEDS ORDERED: MIDAZOLAM 2 MG/2 ML VIAL IVP PRN (11:29)
[2018-06-11] MEDS ORDERED: fentaNYL 100 MCG/2 ML INJ IVP PRN (11:29)
[2018-06-11] MEDS ORDERED: FLUMAZENIL 0.5 MG/5 ML MDV IVP PRN (11:29)
[2018-06-11] MEDS ORDERED: NALOXONE HCL 0.4 MG/ML INJ IVP PRN (11:29)
[2018-06-11] MEDS ORDERED: NS 1,000 ML IV SCH (11:30)
--- NOTE | 2018-06-11 12:57 | PDPROPOC ---
Sedation Plan of Care Sedation Plan of Care: vital signs stable, mental status noted, patient educated of risks, benefits, alternatives, patient can tolerate sedation ASA Classification: ASA 3 Planned drugs: fentanyl, midazolam Mallampati Score: Class 1 Mallampati Reference Image: Patient passed 3-3-2 rule?: Yes
--- NOTE | 2018-06-11 12:57 | PDGENHP ---
History & Physical Chief Complaint: DIZZINESS History of Present Illness: LT SUBLAVIAN STEAL SYNDROME Pertinent Past, Social, Family History: KYPHOPLASTY. Relevant Physical Exam: IN NO DISTRESS Cardiorespiratory Assessment: RRR, CTA
[2018-06-11] MEDS ORDERED: FLUMAZENIL 0.5 MG/5 ML MDV IVP ONE (13:02)
[2018-06-11] MEDS ORDERED: fentaNYL 100 MCG/2 ML INJ ONE (13:03)
[2018-06-11] MEDS ORDERED: MIDAZOLAM 2 MG/2 ML VIAL ONE (13:03)
[2018-06-11] MEDS ORDERED: NALOXONE HCL 0.4 MG/ML INJ ONE (13:03)
[2018-06-11 13:11] LABS: INR 0.99 (0.83-1.16); PROTIME(PATIENT) 12.7 SEC (12.0-15.0)
[2018-06-11] MEDS ORDERED: IOPAMIDOL (ISOVUE-300) 100 ML BTL ONE (13:44)
[2018-06-11] MEDS ORDERED: ONDANSETRON 4 MG/2 ML VIAL IVP PRN (14:19)
--- NOTE | 2018-06-11 14:22 | PDRADPN ---
Radiology Procedure Note Date of Procedure: 06/11/18 Radiologist: Анна Kearney Anesthesia: IV Sedation Pre-op Diagnosis: subclavian steal syndrome Post-op Diagnosis: subclavian stenosis Indication: dizziness Procedure: LT subclavian angiogram with stent placement Inf/Abcess present in the surg proc area at time of surgery?: No
[2018-06-11 18:28] VITALS: BP 135/68
== END 2018-06-11 18:23 | disposition home or self-care (01) ==
LOC: FIMAGING 11:13
PROVIDERS: ATTEND Radiology Diagnostic Radiology
PROC: 03743DZ Dilation of Left Subclavian Artery with Intraluminal Device, Percutaneous Approach (ICD-10-PCS; principal; 2018-06-11 15:35)
DX: G45.8 Other transient cerebral ischemic attacks and related syndromes (principal)
CPT/HCPCS: 37236; 76937; 99152; 99153; C1769; C1887; C1876; J1644; J2250; J2310; J3010; Q9967